=== PATIENT | female | born 1940 | race Caucasian/White ===

== ENCOUNTER 2024-01-19 16:27 | Inpatient (IN) | payer OTHER ==
[~2024-01-19] VITALS: Ht 157.5 cm; Wt 56.3 kg
[2024-01-19 17:21] LABS: Basophils # (auto) 0 10 ^3/uL (0-0.2); Basophils % (auto) 0.3 % (0.0-2.0); Eosinophils # (auto) 0 10 ^3/uL (0-0.8); Eosinophils % (auto) 0.1 % (0.0-7.0); Hematocrit 28.7 % (36.0-46.0); Hemoglobin 9.8 g/dL (12.2-16.2); Lymphocytes # (auto) 1.4 10 ^3/uL (0.4-5.4); Lymphocytes % (auto) 23.9 % (10.0-50.0); Mean Corpuscular Hemoglobin 31.8 pg (28.0-32.0); Mean Corpuscular Volume 93.3 fL (80.0-100.0); Monocytes # (auto) 0.4 10 ^3/uL (0-1.3); Monocytes % (auto) 6.1 % (0.0-12.0); Neutrophils # (auto) 4.2 10 ^3/uL (1.6-8.6); Neutrophils % (auto) 69.6 % (37.0-80.0); Nucleated Red Blood Cells % 0.1 %; Platelet Count (auto) 358 10^3/uL (140-450); Red Blood Cells 3.08 10^6/uL (4.0-5.20); Red Cell Distribution Width 13.9 % (11.8-14.3)
[2024-01-19 17:37] LABS: INR 1.21 (0.9-1.15); Partial Thromboplastin Time 30.7 SEC (24.5-34.5); Prothrombin Time 12.6 sec (9.3-11.8)
[2024-01-19] MEDS ORDERED: MORPHINE SULFATE INJ 2 MG/ml SYRG IV PRN ×2 (17:45)
[2024-01-19] MEDS: SODIUM CHLORIDE 0.9% 1,000 ML IV SCH (17:45)
[2024-01-19] MEDS ORDERED: NITROGLYCERIN 0.4 MG SL TAB SL PRN (17:45)
[2024-01-19] MEDS ORDERED: hydrALAZINE HCL 20 MG/ML VL IV PRN (17:45)
[2024-01-19 20:01] LABS: Albumin 3.9 g/dL (3.2-4.8); Alkaline Phosphatase 74 U/L (46-116); Anion Gap 4 (5-15); Aspartate Aminotransferase 16 U/L (13-40); BUN/Creatinine Ratio 11.6 (10.0-20.0); Bilirubin, Total 0.5 mg/dL (0.2-1.0); Blood Urea Nitrogen 11 mg/dL (9-23); Calcium 9.4 mg/dL (8.7-10.4); Carbon Dioxide 31 mmol/L (20-31); Chloride 102 mmol/L (98-107); Glucose 99 mg/dL (74-106); Potassium 3.6 mmol/L (3.5-5.1); Sodium 137 mmol/L (136-145); Total Protein 6.5 g/dL (5.7-8.2)
[2024-01-19 20:18] LABS: Alanine Aminotransferase < 9 U/L (7-40)
[2024-01-19] MEDS: PANTOPRAZOLE 40 MG/10 ML VIAL INJ IV SCH (22:21)
[2024-01-19] MEDS: HYDROcodone-ACET 5/325MG TAB PO PRN (22:22)
[2024-01-19 23:15] VITALS: BP 135/72; PULSE 80; TEMP 98; O2SAT 96
[2024-01-20] VITALS (7 sets, daily range): BP systolic 127–140; BP diastolic 69–85; PULSE 71–158; RESP 17–20; TEMP 97.7–98.8; O2SAT 96–97
[2024-01-20] MEDS ORDERED: CHOL20007 PO (05:23)
[2024-01-20] MEDS ORDERED: MELA3TAB27 PO (05:23)
[2024-01-20] MEDS ORDERED: BECLPOW XX (05:23)
[2024-01-20] MEDS ORDERED: DILT60TA PO (05:23)
[2024-01-20] MEDS ORDERED: POTA-215 PO (05:23)
[2024-01-20] MEDS ORDERED: HYDR-4798 PO (05:23)
[2024-01-20] MEDS ORDERED: APIX5TAB PO (05:23)
[2024-01-20] MEDS ORDERED: FURO40TA4 PO (05:23)
[2024-01-20 07:30] LABS: Basophils # (auto) 0 10 ^3/uL (0-0.2); Basophils % (auto) 0.3 % (0.0-2.0); Eosinophils # (auto) 0 10 ^3/uL (0-0.8); Eosinophils % (auto) 0.2 % (0.0-7.0); Hematocrit 26.6 % (36.0-46.0); Hemoglobin 9.3 g/dL (12.2-16.2); Lymphocytes # (auto) 1.1 10 ^3/uL (0.4-5.4); Lymphocytes % (auto) 13.3 % (10.0-50.0); Mean Corpuscular Hemoglobin 32.5 pg (28.0-32.0); Mean Corpuscular Hgb Conc. 34.9 g/dL (32.0-36.0); Monocytes # (auto) 0.7 10 ^3/uL (0-1.3); Monocytes % (auto) 8.1 % (0.0-12.0); Neutrophils # (auto) 6.4 10 ^3/uL (1.6-8.6); Neutrophils % (auto) 78.1 % (37.0-80.0); Platelet Count (auto) 325 10^3/uL (140-450); Red Blood Cells 2.85 10^6/uL (4.0-5.20); Red Cell Distribution Width 14.1 % (11.8-14.3); White Blood Cell 8.2 10^3/uL (4.4-10.8)
[2024-01-20 07:46] LABS: Albumin 3.4 g/dL (3.2-4.8); Alkaline Phosphatase 67 U/L (46-116); Anion Gap 6 (5-15); Aspartate Aminotransferase 14 U/L (13-40); BUN/Creatinine Ratio 11.2 (10.0-20.0); Bilirubin, Total 0.6 mg/dL (0.2-1.0); Blood Urea Nitrogen 11 mg/dL (9-23); Calcium 8.8 mg/dL (8.7-10.4); Carbon Dioxide 29 mmol/L (20-31); Chloride 106 mmol/L (98-107); Glucose 98 mg/dL (74-106); Potassium 3.8 mmol/L (3.5-5.1); Sodium 141 mmol/L (136-145); Total Protein 5.7 g/dL (5.7-8.2)
[2024-01-20 08:11] LABS: Alanine Aminotransferase < 9 U/L (7-40)
[2024-01-20] MEDS: AMIODARONE HCL 200 MG TAB PO ONE (12:17)
[2024-01-20] MEDS: dilTIAZem 120MG ER CAP PO ONE (12:18)
[2024-01-20] MEDS ORDERED: PROPOFOL 10 MG/ML 20 ML IV ONE (12:25)
[2024-01-20] MEDS ORDERED: fentaNYL CITRATE 100 MCG/2 ML VL ONE (12:25)
[2024-01-20] MEDS ORDERED: GLYCOPYRROLATE 0.2 MG/ML 1ML VIAL ONE (12:25)
[2024-01-20] MEDS ORDERED: ONDANSETRON HCL 4 MG/2 ML VIAL ONE (12:25)
[2024-01-20] MEDS ORDERED: MIDAZOLAM HCL 2MG/2ML 2ml VIAL (1mg/ml) ONE (12:25)
[2024-01-20 13:56] LABS: Urine Bacteria None Seen /hpf (None Seen)
[2024-01-20 14:32] LABS: Urine Blood Negative /uL (Negative); Urine Clarity Clear (Clear); Urine Color Light-Yellow (Yellow); Urine Protein, UAD Negative (Negative); Urine Specific Gravity 1.013 (1.001-1.035); Urine Urobilinogen Normal (Negative); Urine WBC <1 /hpf (0 - 5); Urine pH 6.5 (5.0-9.0)
[2024-01-20] MEDS ORDERED: PANT40TA2 PO (15:20)
[2024-01-21] MEDS ORDERED: AMIODARONE HCL 200 MG TAB PO SCH (10:00)
[2024-01-21] MEDS ORDERED: dilTIAZem 120MG ER CAP PO SCH (10:00)
== END 2024-01-20 20:48 | disposition home or self-care (01) | DRG 378 ==
LOC: EDBD 16:27 → ER 16:27 → OBSVTOIN 17:39 → TELE 17:39 → INTOOBSV 17:39 → TELE-WESTW 23:01
PROVIDERS: ADMIT Student in an Organized Health Care Education/Training Program; ATTEND Student in an Organized Health Care Education/Training Program
PROC: 0DB78ZX Excision of Stomach, Pylorus, Via Natural or Artificial Opening Endoscopic, Diagnostic (ICD-10-PCS; 2024-01-20)
PROC: 0DB98ZX Excision of Duodenum, Via Natural or Artificial Opening Endoscopic, Diagnostic (ICD-10-PCS; principal; 2024-01-20 13:00)
DX: K31.811 Angiodysplasia of stomach and duodenum with bleeding (principal); D68.59 Other primary thrombophilia; K29.41 Chronic atrophic gastritis with bleeding; I48.91 Unspecified atrial fibrillation; I11.0 Hypertensive heart disease with heart failure; I50.9 Heart failure, unspecified; J44.89 Other specified chronic obstructive pulmonary disease; I25.10 Atherosclerotic heart disease of native coronary artery without angina pectoris; D50.0 Iron deficiency anemia secondary to blood loss (chronic); E03.9 Hypothyroidism, unspecified; Z90.49 Acquired absence of other specified parts of digestive tract; Z79.01 Long term (current) use of anticoagulants; Z90.710 Acquired absence of both cervix and uterus; Z88.0 Allergy status to penicillin; Z88.5 Allergy status to narcotic agent; Z79.899 Other long term (current) drug therapy
CPT/HCPCS: 36415; 43239; 71045; 80053; 81001; 85025; 85610; 85730; 88305; 88312; 88342; 96374; 96376; 99284; G0378; J2250; J2405; J2470; J2704; J3010; J7030